=== PATIENT | female | born 1945 | race Caucasian/White ===

== ENCOUNTER 2018-11-26 20:45 | Inpatient (IN) | payer OTHER ==
[~2018-11-26] VITALS: Ht 182.9 cm; Wt 58.5 kg
--- NOTE | ~2018-11-26 | CON ---
[facility] [address] [place] [address] CONSULTATION Name: GRAZYNACIERRA Shalonda Room: [address] IN M.R.#: [id number] Admission: 11/26/18 Attend Phys: Lorenzo Yuan MD Discharge: Date of : 45 Report #: [id number] THIS REPORT FOR: //name// CC: Lorenzo Romero DATE OF SERVICE: 11/27/2018 HISTORY OF PRESENT ILLNESS: This is a 73-year-old female patient who was evaluated by me for memory disturbances. This patient is not able to provide any reliable history. There is only one number in the patient's chart for the patient's daughter. I tried that number and nobody answered that and I cannot leave a message there. We will continue to try to contact her. Clinically, this patient appeared to have pretty significant memory disturbances. I do not know how long it is going on because the patient does not even realize that she has memory problems. REVIEW OF SYSTEMS: Indicates she has some anxiety, history of fibromyalgia, arthritis, nephrectomy and that is from the records. I carried out 14-point review of system in this patient, but I am not sure whether the history provided by the patient is accurate or not. She complained of some chest pain, but she does not describe it further. This is all I can get as far as 14-point review of system is concerned. PAST MEDICAL HISTORY: Positive for memory problem, but I do not know how long it is going on and I need to contact the daughter and we will continue to make an effort to do that. Past medical history is unavailable from the patient. She denies any stroke, but the history is not reliable. FAMILY HISTORY: Negative for stroke according to him. SOCIAL HISTORY: She said she does not drink any alcohol. PHYSICAL EXAMINATION: The patient's examination indicate that the patient is alert. She could not tell me what date it is. She was able to tell me what month it is. She has 0 out of 3 memories at 2 minutes interval. Her speech looks intact. Cranial nerve examination 2-12 was carried out and it is difficult to tell especially about the visual field because she does not cooperate. Neuromuscular examination for strength, sensation, reflexes and tone was carried out again she is pretty not able to cooperate. She is very pleasant, but she does not understand the instructions. Similarly, I could not look at the fundus. Cardiac examinations appear unremarkable. No respiratory difficulty was noticed. She is moderately built individual. Her blood pressure is 98/52, respiration is 15, pulse is 78, and temperature is 98.1. LABORATORY DATA: Her WBC count is only 3. Her hemoglobin is only 8[place] [address] CONSULTATION Name: GRAZYNACIERRA SANTOS Shalonda Room: [address] IN ..#: [id number] Admission: 11/26/18 Attend Phys: Lorenzo Yuan MD Discharge: Date of : 45 Report #: [id number] scan of the head demonstrated no acute changes. IMPRESSION AND PLAN: This patient appeared to have significant dementia. I agree with your plan of doing a workup starting with a TSH, vitamin B12, and a sed rate. Further workup need to be coordinated with the patient's family. I will continue to make an effort to reach the family to see if we can get some more history in this patient and leave further recommendations later on. Thank you very much for this referral. By: 1846 0039Neal Newsome MD /nt
[~2018-11-26 20:45] MED LIST: FLEXERIL PO; HYDROCODON-ACE1 EAC5 PO; HYDROCODONE-AP1 EAC6 PO; KEFLEX500 MG PO; MIRALAX17 GM PO; OMEPRAZOLE 20 M20 M1 PO; PERCOCET 7.5-31 EACH PO; TRAZODONE HCL100 MG PO; XANAX2 MG PO
[2018-11-26 20:47] VITALS: BP 116/38
[2018-11-26 21:18] LABS: ABSOLUTE LYMPHOCYTES 0.6 thou/uL (0.8-5.3); ABSOLUTE MONOCYTES 0.4 thou/uL (0.0-1.2); ABSOLUTE NEUTROPHILS 1.9 thou/uL (1.6-8.1); EOSINOPHILS 0.2 %; HEMATOCRIT 23.6 % (37.0-47.0); LYMPHOCYTES 19.9 %; MCH 39.2 pg (26.0-34.0); MCHC 33.8 g/dL (28.0-37.0); MCV 115.8 fL (80.0-100.0); MONOCYTES 14.8 %; MPV 6.9 fl. (7.2-11.1); NUCLEATED RBCS 0 /100WBC; PLATELET COUNT* 184 thou/uL (150-400); POLYS 64.1 %; RBC 2.03 mil/uL (4.20-5.00); RDW-CV 15.1 % (10.5-14.5)
[2018-11-26 21:29] LABS: ANION GAP 6 mmol/L (7-16); BUN 17 mg/dL (7-18); CALCIUM 9.1 mg/dL (8.5-10.1); CHLORIDE 105 mmol/L (98-107); CO2 30 mmol/L (21-32); CREATININE 0.9 mg/dL (0.6-1.3); GLUCOSE 101 mg/dL (70-99); POTASSIUM 4.9 mmol/L (3.5-5.1); SODIUM 141 mmol/L (136-145)
[2018-11-26 21:31] LABS: APTT 27.5 Seconds (25.0-31.3); INR 1.1
[2018-11-26 21:43] LABS: ALBUMIN 3.5 g/dL (3.4-5.0); ALKALINE PHOSPHATASE 79 U/L (46-116); CK-MB MASS 6.6 ng/mL (<0.5-3.6); LIPASE 573 U/L (73-393); MAGNESIUM 2.1 mg/dL (1.8-2.4); NT-PRO BRAIN NAT PEPTIDE 1409 pg/mL (<300); SGOT 26 U/L (15-37); SGPT 33 U/L (30-65); TOTAL BILIRUBIN 0.7 mg/dL (<0.1-1.0); TOTAL PROTEIN 5.9 g/dL (6.4-8.2); TROPONIN-I LEVEL <0.06 ng/mL (<0.06)
[2018-11-26 22:17] LABS: PLATELET ESTIMATE ADEQUATE
[2018-11-26 22:18] LABS: ANISOCYTOSIS 1+; POLYCHROMASIA Occasional
[2018-11-26 22:19] LABS: MACROCYTES 2+
[2018-11-27] VITALS (8 sets, daily range): BP systolic 82–123; BP diastolic 36–60
--- NOTE | 2018-11-27 00:15 | NUR ---
RECEIVED REPORT FROM ER AND PT ADMITTED TO 229. AMBULATED FROM CART TO BED WITH ASSIST OF 1 AND STEADY. PT ORIENTED TO SELF ONLY. POOR HISTORIAN TO OBTAIN ADMISSION HX. NO SKIN BREAKDOWN NOTED. ALANA FEET WITH OVER GROWTH OF TOENAILS. TELEMETRY APPLIED SHOWING SA. BED ALARM ON. WILL CONT TO MONITOR AND ASSIST NEEDED.
--- NOTE | 2018-11-27 06:43 | NUR ---
SLEPT WELL TONIGHT. VERY DIAPHORETIC THIS AM. ASSISTED TO BR WITH STEADY GAIT. NO CHANGE IN ASSESSMENT. HS GOALS OF REST AND SAFETY ACHIEVED. HOURLY ROUNDING OBSERVED.
[2018-11-27 10:25] LABS: URINE BILIRUBIN NEGATIVE (Negative); URINE BLOOD 1+ (Negative); URINE CLARITY CLEAR; URINE COLOR YELLOW; URINE GLUCOSE-RANDOM NEGATIVE (Negative); URINE KETONES NEGATIVE (Negative); URINE PROTEIN TRACE (Negative)
[2018-11-27 10:28] LABS: URINE LEUKOCYTES-REFLEX 2+ (Negative); URINE NITRITE-REFLEX POSITIVE (Negative)
[2018-11-27 10:36] LABS: BACTERIA-REFLEX >30 Many /HPF (None Seen); CASTS None Seen /LPF (None Seen); CRYSTALS None Seen /LPF (None Seen); MUCUS None Seen strn/LPF (None Seen); SQUAMOUS 0-3 Few /LPF (0-3); URINE RBC 3-10 Few /HPF (0-2); URINE WBC-REFLEX >25 Many /HPF (0-5)
[2018-11-27 10:51] LABS: AMP/METHAMP Negative (Negative); BARBITURATES Negative (Negative); BENZODIAZEPINES Negative (Negative); COCAINE Negative (Negative); METHADONE Negative (Negative); OPIATES Negative (Negative); PCP Negative (Negative); THC Negative (Negative)
--- NOTE | 2018-11-27 10:59 | EKG ---
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
--- NOTE | 2018-11-27 12:20 | NUR ---
MET WITH PT TO DISCUSS HOME SITUATION/DC PLANNING. NO FAMILY PRESENT. ATTEMPTED TO CALL [facility] BUT NO ANSWER AND UNABLE TO LEAVE MESSAGE. PT STATES SHE LIVES WITH [place]. IS INDEPENENT AND USES NO EQUIPMENT. PT WITH SOME CONFUSION AND NOT ABLE TO ANSWER ALL QUESTIONS. WILL CONTINUE TO TRY TO REACH DT.
--- NOTE | 2018-11-27 14:23 | NUR ---
Nutrition: Pt admitted with humeral head FX. Hx, labs, RX noted. Seen for low BMI. Wt: 129#. Clear liquid diet ordered. During visit, pt stated she really needed a bathroom and requested her CHOCOLATIER. Pt did agree to [place] Ensure for added po intake. RD will order Ensure Clear Peña for now since pt is on CLD. Underweight R/T unknown etiology AEB BMI <18.5. Otherwise, no nutrition concerns at this time. Low risk. Will follow up per protocol.
[2018-11-27 20:13] LABS: ESR (SEDRATE) 10 mm/hr (0-30)
[2018-11-28] VITALS: BP 96/40
[2018-11-28 04:00] VITALS: BP 104/49
[2018-11-28 05:44] LABS: MCH 40.5 pg (26.0-34.0); MCHC 35.2 g/dL (28.0-37.0); MCV 115.1 fL (80.0-100.0); MPV 7.3 fl. (7.2-11.1); NUCLEATED RBCS 0 /100WBC; PLATELET COUNT* 149 thou/uL (150-400); RBC 1.65 mil/uL (4.20-5.00); RDW-CV 15.2 % (10.5-14.5)
[2018-11-28 05:50] LABS: CALCIUM 8.2 mg/dL (8.5-10.1); CREATININE 0.8 mg/dL (0.6-1.3)
[2018-11-28 05:59] LABS: HEMOGLOBIN 6.7 gm/dL (12.0-15.0); WBC 1.6 thou/uL (4.0-11.0)
[2018-11-28 06:53] LABS: ABSOLUTE LYMPHOCYTES 0.7 thou/uL (0.8-5.3); ABSOLUTE MONOCYTES 0.2 thou/uL (0.0-1.2); ABSOLUTE NEUTROPHILS 0.8 thou/uL (1.6-8.1); PLATELET ESTIMATE DECREASED
[2018-11-28 06:54] LABS: MACROCYTES 3+
--- NOTE | 2018-11-28 07:27 | NUR ---
PT CARE ASSUMED AT 1930. SAT MAINTAINED IN RA. PT IS IMPULSIVE, GETS OFF THE BED ALARM, EDUCATION GIVEN ON USING THE CALL LIGHT, NEEDS REINFORCEMENT. DENIES PAIN AND SOB. CALL LIGHT WITHIN REACH AND BED IN LOW POSITION. HOURLY ROUNDING DONE FOR PT SAFETY.
[2018-11-28 08:00] VITALS: BP 96/46
[2018-11-28 11:12] VITALS: BP 110/60; BP 115/80; BP 120/62; BP 124/80; BP 97/64
--- NOTE | 2018-11-28 18:01 | NUR ---
PT RESTING IN BED THROUGHOUT SHIFT. PT CALLS APPROPRIATELY FOR ASSIST TO BR. ORIENTED TO TIME AND PERSON. PT TOLERATING PO WELL. REPORTS OCASSIONAL NAUSEA. DTR AT BS AND UPDATED ON PLAN OF CARE
[2018-11-28 20:20] VITALS: BP 103/45
--- NOTE | 2018-11-28 22:17 | CON ---
[address] [address] CONSULTATION Name: GRAZYNACIERRA J Room: [address] IN .R.#: [id number] Admission: 11/26/18 Attend Phys: Lorenzo Yuan MD Discharge: Date of : 45 Report #: [id number] THIS REPORT FOR: //name// CC: Lorenzo Romero DATE OF SERVICE: 11/27/2018 INPATIENT CONSULTATION REQUESTING PHYSICIAN: Octavio Reece MD REASON FOR CONSULTATION: Unexplained anemia and leukopenia. SUBJECTIVE: The patient is a 73-year-old female who presented because of symptoms of nausea, vomiting, confusion and altered mental status. The patient was awake and alert upon encounter today. She has been treated with supportive care with IV fluids and antibiotics. She had a urinalysis, which showed UTI. Reviewing her labs showed that her WBC was decreased at 3.0. Previously back in 2014, it has been within that range. Also, she had a mild anemia back in 12/2014, which was 10.3; however, today, her hemoglobin is 8.0, MCV was elevated at 115 and platelet count is 184. However, her neutrophils has been within normal range and peripheral blood smear showed mild anisocytosis and macrocytosis. Further workup revealed that she has a normal kidney function with a normal elevation of her LFTs; however, she was noted to have a positive urinalysis. The patient denies any recent weight loss, nausea, vomiting or abdominal pain. REVIEW OF SYSTEMS: All systems were reviewed. It was negative except the above. PAST MEDICAL HISTORY: The patient had fibromyalgia and osteoarthritis. PRIOR SURGERIES: Nephrectomy and total knee replacement. MEDICATIONS: Per admission list. ALLERGIES: No known allergies. SOCIAL HISTORY: No smoking, no alcohol abuse, no drug abuse. FAMILY HISTORY: Noncontributory. PHYSICAL EXAMINATION: VITAL SIGNS: Today, temperature is 36.0, pulse is 58, respirations 16, blood pressure is 106/51 and SpO2 was 96% [place] [address] CONSULTATION Name: CIERRA GERONIMO Room: [address] IN [facility].#: [id number] Admission: 11/26/18 Attend Phys: Lorenzo Yuan MD Discharge: Date of : 45 Report #: [id number] GENERAL: The patient was lying in bed. She was not in acute distress. LUNGS: Clear to auscultations bilaterally. HEART: Regular rate and rhythm. S1, S2 within normal limits. ABDOMEN: The patient with no rebound or guarding. Bowel sounds were positive. EXTREMITIES: No edema, no cyanosis, no clubbing. SCANS: A CT of the head was negative. Chest x-ray also showed no acute cardiopulmonary process detected. LABORATORY DATA: Labs as mentioned above. WBC 3.0, hemoglobin 8.0, MCV is 115.8 and platelet count is 184. PT was 11.0 and PTT 27.5. Her creatinine is 0.7. Magnesium is 2.1, AST 26, ALT is 33 and alkaline phosphatase 79. ASSESSMENT AND PLAN: A 73-year-old female who has been evaluated because of unclear symptoms including nausea, vomiting, change in mental status. She was found to have a urinary tract infection. A CBC showed mild leukopenia, which has been chronic. However, she had a significant anemia, which was macrocytic. Agree with obtaining B12 and folate; however, at the same time, I would like to rule out any possibility of liver disease. We will obtain ultrasound of the abdomen to rule out any possibility of hepatosplenomegaly. Other workup including peripheral blood smear, serum electrophoresis and flow cytometry will be also indicated today. I will follow the patient during hospitalization. <ELECTRONICALLY SIGNED> By: Cathy Winters MD 11/28/18 2217 1625 0025Cathy Winters MD /nt
[2018-11-29 04:00] VITALS: BP 116/54
[2018-11-29 04:26] LABS: ABSOLUTE LYMPHOCYTES 1.1 thou/uL (0.8-5.3); ABSOLUTE MONOCYTES 0.3 thou/uL (0.0-1.2); ABSOLUTE NEUTROPHILS 1.1 thou/uL (1.6-8.1); BASOPHILS 0.9 %; EOSINOPHILS 0.7 %; HEMATOCRIT 24.3 % (37.0-47.0); HEMOGLOBIN 8.2 gm/dL (12.0-15.0); LYMPHOCYTES 43.6 %; MCH 37.1 pg (26.0-34.0); MCHC 33.9 g/dL (28.0-37.0); MPV 6.8 fl. (7.2-11.1); NUCLEATED RBCS 0 /100WBC; PLATELET COUNT* 160 thou/uL (150-400); POLYS 43.8 %; RBC 2.22 mil/uL (4.20-5.00); RDW-CV 20.9 % (10.5-14.5); WBC 2.6 thou/uL (4.0-11.0)
[2018-11-29 05:17] LABS: MCV 109.6 fL (80.0-100.0)
--- NOTE | 2018-11-29 05:56 | NUR ---
PT CARE ASSUMED AT 1930. SAT MAINTAINED IN RA. PT IS CONFUSED. CALL LIGHT WITHIN REACH AND BED IN LOW POSITION. DENEIS PAIN AND SOB. HOURLY ROUNDING DONE FOR PT SAFETY.
--- NOTE | 2018-11-29 07:05 | NUR ---
CHANGE OF SHIFT OF BEDSIDE REPORT GIVEN PATIENT SEEN AT BEDSIDE, IN BED ASLEEP ASSUMED PATIENT CARE
[2018-11-29 08:00] VITALS: BP 103/40
--- NOTE | 2018-11-29 08:55 | NUR ---
RECEIVED CONSULT FOR DR. KUHN TO DO BONE MARROW BIOPSY. ALL LABS AND MEDICATIONS CHECKED AND FROM IR STANDPOINT THE PROCEDURE CAN BE PERFORMED. WAITING FOR DR. PINA (PATHOLOGY) TO CALL BACK TO APPROVE PROCEDURE. LEFT VOICEMAIL DR. PINA IS NOT HERE TODAY, HE IS IN [place]. CALLED THE FLOOR AND SPOKE TO EUGENIO DEE TO UPDATE HER ON THE STATUS OF THE PROCEDURE. WILL CALL HER BACK WHEN DR. PINA GIVES THE APPROVAL.
--- NOTE | 2018-11-29 10:02 | NUR ---
SPOKE WITH DR. PINA FROM PATHOLOGY. EXPLAINED SITUATION AND REVIEWED PATIENT INFORMATION (LABS,ETC) AND HE HAS APPROVED FOR PATIENT BONE MARROW TO BE DONE AN INPATIENT. CALLED DR. KUHN AND DR. KUHN WILL DO TOMORROW AM. DR. KRISHNAN AND DR. RODRIGUES HAVE BOTH BEEN NOTIFIED AND ARE IN AGREEMENT THAT TOMORROW IS FINE FOR BIOPSY TO BE DONE. INFORMED THE NURSE ON THE FLOOR SO THAT SHE COULD ALLOW THE PATIENT TO EAT AND KEEP NPO PAST MIDNIGHT FOR PROCEDURE TOMORROW.
[2018-11-29 12:28] VITALS: BP 100/49
[2018-11-29 15:07] LABS: KAPPA FREE LIGHT CHAINS 17.9 mg/L (3.3-19.4); LAMBDA FREE LIGHT CHAINS 16.9 mg/L (5.7-26.3)
[2018-11-29 16:29] VITALS: BP 105/51
[2018-11-29 20:10] VITALS: BP 102/52
[2018-11-30] VITALS (10 sets, daily range): BP systolic 94–128; BP diastolic 43–65
[2018-11-30 04:32] LABS: ABSOLUTE LYMPHOCYTES 1.1 thou/uL (0.8-5.3); ABSOLUTE MONOCYTES 0.3 thou/uL (0.0-1.2); ABSOLUTE NEUTROPHILS 0.9 thou/uL (1.6-8.1); BASOPHILS 0.7 %; EOSINOPHILS 1.1 %; HEMATOCRIT 22.1 % (37.0-47.0); HEMOGLOBIN 7.5 gm/dL (12.0-15.0); LYMPHOCYTES 46.5 %; MCH 37.4 pg (26.0-34.0); MCV 110.1 fL (80.0-100.0); MONOCYTES 14.2 %; MPV 6.9 fl. (7.2-11.1); NUCLEATED RBCS 0 /100WBC; PLATELET COUNT* 153 thou/uL (150-400); POLYS 37.5 %; RBC 2.01 mil/uL (4.20-5.00); RDW-CV 20.1 % (10.5-14.5); WBC 2.3 thou/uL (4.0-11.0)
[2018-11-30 04:43] LABS: CALCIUM 8.2 mg/dL (8.5-10.1); CREATININE 0.9 mg/dL (0.6-1.3); POTASSIUM 4.1 mmol/L (3.5-5.1)
[2018-11-30 07:01] LABS: ANISOCYTOSIS 2+; MACROCYTES 2+
--- NOTE | 2018-11-30 10:51 | NUR ---
CONTINUE TO FOLLOW, PT'S SISTER, TEDDY RIVAS HERE [phone]. SHE WAS NOT ON PT'S SPOKESPERSON LIST BUT SHE DID GIVE INFO. SHE VOICED CONCERN ABOUT PT'S LIVING SITUATION AND WONDERED IF PT NEEDED [facility] CARE. WILL CONTINUE TO WORK ON [place] PLANNING [facility]. AT THIS TIME IS HOME WITH [facility] AT [place]
[2018-11-30 13:11] LABS: GLOBULIN TOTAL 1.6 g/dL (2.2-3.9); M-SPIKE Not Observed g/dL (Not Observed)
--- NOTE | 2018-11-30 17:06 | PATH ---
[address] [address] PATHOLOGY RPT PROCEDURE Name: GRAZYNACIERRA Shalonda Room: [address] IN M.R.#: [id number] Admission: 11/26/18 Date of : 45 Discharge: Report #: [id number] Path Case #: [id number] [facility] Accession Number: [id number] . 01 Material submitted: . body - PERIPHERAL BLOOD . 02 Diagnosis: Special studies report received from [facility], [address] [place] [address], [address], [place], [address], on case [id number], labeled with their number [id number], dated 11/29/2018. . Flow Cytometry: Hematologic Neoplasia Assessment . Clinical History Encephalopathy and UTI . Indication for Study Evaluation for hematolymphoid neoplasia . Specimen Peripheral Blood . Viability 85% (7AAD exclusion) . Interpretation Peripheral Blood: - Relatively increased T-cell large granular lymphocytes (T-LGLs) (9.3% of total cells). - No evidence for abnormal myeloid maturation or an increased blast population. - No evidence for a B-cell lymphoproliferative disorder. . Comments Proliferations of large granular lymphocytes are a relatively frequent finding. They can increase in viral infections, autoimmune disorders, and following bone marrow transplantation and chemotherapy. They can also increase in T-LGL lymphoproliferative disorders (T-cell large granular lymphocytic leukemia). If needed, molecular testing for clonal TCR gene rearrangement is available to further assess for a clonal T-LGL process. Correlation with results of morphologic studies, CBC data, and other clinical data is recommended. . Populations Analyzed Myeloid Blasts: 0.1% No significant blast population detected Lymphocytes: 40% B-cells: 0.8%, polytypic/polyclonal sIg light chain pattern T-cells: no [place] [address] PATHOLOGY RPT PROCEDURE Name: CIERRA GERONIMO Shalonda Room: [address] ADM IN .R.#: [id number] Admission: 11/26/18 Date of : 45 Discharge: Report #: [id number] Path Case #: [id number] markers tested CD4+ T-cells: 14.8% (including 0.2% CD57+ cells) CD8+ T-cells: 22.0% (including 8.5% CD57+ cells) CD4:CD8: The CD4:CD8 ratio is reduced at 0.7:1. NK cells: 0.4%, T-LGLs comprise 9.3% of total cells and express CD3, CD8, CD57 (heterogeneous), CD11c, CD16, and show upregulation of CD2, downregulation of CD5 and CD7. They are negative for CD4 and CD56. Neutrophils: 51% No significant abnormalities of the markers tested Monocytes: 5% No significant abnormalities of the markers tested Eosinophils: 2% No relative increase Basophils: 0.1% No relative increase CD45 Negative 1% No significant reactivity with the markers tested Events/Debris: (may represent unlysed red blood cells, erythroid precursors, platelets, debris, etc.) . Morphologic Evaluation A slide was reviewed for supplier quality manager purposes only. . Specimen Description Total Cell Yield: 1.10X10 and 6 . Reagent(s) Used CD2, CD3, CD4, CD5, CD7, CD8, CD10, CD11b, CD13, CD14, CD16, CD19, CD20, CD33, CD34, CD38, CD45, CD56, CD57, CD64, CD117, HLA-DR, kappa, lambda . at [facility] [employer] [facility]. Madi Mccartney MD Hematopathologist . . Intended Use Flow cytometry is optimally used to immunophenotypically characterize abnormal populations when they are detected. Negative flow cytometry results do not exclude lymphoma or neoplasia. Possible false negative flow cytometry results may occur in, but are not limited to, the following: neoplastic cells in Hodgkin lymphoma are not typically adequately represented by routine clinical flow cytometry; neoplastic cells may be lost or inadequately represented due to degeneration, sample processing, sampling artifact, or patchy involvement; plasma cells are typically underrepresented by flow cytometry; immature cells/blasts may be underrepresented due to hemodilution; myeloproliferative disorders and low grade myelodysplasia may not have immunophenotypic abnormalities or increased blasts. Correlation with all available clinical, laboratory, and morphologic data is always necessary to assess for the possibility of false negative flow cytometry results and to establish a diagnosis. Each marker in this analysis was used to assess [place] [address] PATHOLOGY RPT PROCEDURE Name: CIERRA GERONIMO Room: 229-P ADM IN M.R.#: [id number] Admission: 11/26/18 Date of : 45 Discharge: Report #: [id number] Path Case #: [id number] abnormalities or to evaluate detected abnormalities. . Disclaimer(s) This test was performed at [facility]. at [address], [address] - Project Officer: Jassi Copeland MD. [employer] is a business unit of [employer]., a wholly-owned subsidiary of [employer] . Any image or images that accompany this report are player services representative images only and should not be used to render a diagnosis. . This test was developed and its performance characteristics determined by [employer]. It has not been cleared or approved by the Food and Drug Administration (FDA). The FDA has determined that such clearance or approval is not necessary. . For inquiries, the physician may contact Lab: [phone] . A complete copy of the report is on file. . Professional services performed by [employer]. at [address] [facility] [address], [place] [address]. Technical services performed by [employer]. at [address], [place] [address]. . (AMJ 11/30/2018) . AZJ/11/30/2018 . 02 Electronically signed: . Pricila Manuel MD, Pathologist NPI- [id number] . 02 Pathologist provided ICD-10: G93.40 . 02 CPT . 150932 Specimen Comment: A courtesy copy of this report has been sent to Specimen Comment: [phone], , . Specimen Comment: Report sent to ,DR HARRISON / DR TORRES Performed at: 01 [facility] [address] [place] [address] [id number] MD Saran Renee MD Phone: [phone] Performed at: [address] [place] [address] PATHOLOGY RPT PROCEDURE Name: CIERRA GERONIMO Room: [address] IN ..#: [id number] Admission: 11/26/18 Date of : 45 Discharge: Report #: [id number] Path Case #: [id number] [facility] [address] [place] [address] [id number] MD Ian Danielle MD Phone: [phone]
--- NOTE | 2018-11-30 17:40 | NUR ---
ASSUMED PT CARE AT 0800, AOX2, UP WITH ASSIST, O2 SAT 90'S RA, TRACING SR ON TELE. PT COMPLAINS OF NAUSEA & VOMITING, HEADACHE. RELIEVED BY MEDS. PT HAD BONE MARROW BIOPSY. PT LUNG SOUND CLEAR. IV ACCESS INTACT. VSS, AM ASSESSMENT CHARTED, HOURLY ROUNDING, CALL LIGHT WITHIN REACH. WILL CONTINUE TO MONITOR.
[2018-12-01] VITALS: BP 104/37
[2018-12-01 04:00] VITALS: BP 92/47
[2018-12-01 04:48] LABS: ABSOLUTE LYMPHOCYTES 0.8 thou/uL (0.8-5.3); ABSOLUTE MONOCYTES 0.3 thou/uL (0.0-1.2); ABSOLUTE NEUTROPHILS 0.7 thou/uL (1.6-8.1); BASOPHILS 0.8 %; EOSINOPHILS 2.5 %; HEMATOCRIT 21.6 % (37.0-47.0); HEMOGLOBIN 7.3 gm/dL (12.0-15.0); LYMPHOCYTES 44.2 %; MCH 37.5 pg (26.0-34.0); MCV 110.4 fL (80.0-100.0); MONOCYTES 14.9 %; MPV 7.2 fl. (7.2-11.1); NUCLEATED RBCS 0 /100WBC; PLATELET COUNT* 141 thou/uL (150-400); POLYS 37.6 %; RBC 1.96 mil/uL (4.20-5.00); RDW-CV 19.1 % (10.5-14.5)
[2018-12-01 05:01] LABS: CALCIUM 8.3 mg/dL (8.5-10.1); CREATININE 0.9 mg/dL (0.6-1.3); POTASSIUM 3.9 mmol/L (3.5-5.1)
[2018-12-01 05:07] LABS: WBC 1.9 thou/uL (4.0-11.0)
--- NOTE | 2018-12-01 06:56 | NUR ---
Pt sets off bed alarm when she needs to void, attempts to get up by self. Ambulates well with walker and standby assist. Remains confused, though pleasant and cooperative; also impulsive as demonstrated above. VSS though BP soft at times. SB-SR per monitor. WBC 1.9 this am, informed Dr. Bassett; no new orders received. No nausea reported overnight. Will continue to monitor.
[2018-12-01 07:30] VITALS: BP 108/45
--- NOTE | 2018-12-01 09:53 | NUR ---
ASSUMED PT CARE AT 0730. AOX2, UP WITH ASSIST. O2 SAT 90'S RA. TRACING SR ON MONITOR. PT COMPLAIN OF HEADACHE. PT WBC IS LOW, DR NOTIFIED. PT FOR DISCHARGE PER , IF HEMATOLOGY IS OK. VSS, AM ASSESSMENT CHARTED. MEDS GIVEN PER MAR, BED ALARM, CALL LIGHT WITHIN REACH. WILL CONTINUE TO MONITOR.
[2018-12-01] MEDS ORDERED: FOLIC ACID1 MG PO (10:25)
[2018-12-01] MEDS ORDERED: CEFUROXIME500 MG PO (10:26)
[2018-12-01 10:38] VITALS: BP 106/51
[2018-12-01 12:18] VITALS: BP 98/61
--- NOTE | 2018-12-01 16:00 | NUR ---
Following for d/c planning needs. Received order for home health from physician. Per previous CM note, pt chose [facility]. Called [facility] and faxed orders. No other needs identified.
--- NOTE | 2018-12-01 17:05 | NUR ---
DISCHARGED PLAN DISCUSSED WITH PT AND DAUGHTER. MEDICATION PACKET SCRIPT/PACKET GIVEN. IV, TELE REMOVED. REMINDED TO FOLLOW UP WITH PCP, HEMO/ONCO. ALL BELONGIONGS PACKED AND CHECKED. LEFT THE UNIT AT 1700 VIA WHEELCHAIR
== END 2018-12-01 18:30 | disposition home health service (06) | DRG 871 ==
LOC: M.ERS 20:45 → M.TBA-ER 23:06 → M.2W 23:06
PROVIDERS: Family Medicine; Internal Medicine; ADMIT Internal Medicine
PROC: 30233N1 Transfusion of Nonautologous Red Blood Cells into Peripheral Vein, Percutaneous Approach (ICD-10-PCS; principal; 2018-11-28)
PROC: 07DR3ZX Extraction of Iliac Bone Marrow, Percutaneous Approach, Diagnostic (ICD-10-PCS; 2018-11-30)
DX: A41.9 Sepsis, unspecified organism (principal); G93.41 Metabolic encephalopathy; N39.0 Urinary tract infection, site not specified; M19.90 Unspecified osteoarthritis, unspecified site; Z96.651 Presence of right artificial knee joint; D64.9 Anemia, unspecified; D72.819 Decreased white blood cell count, unspecified; G30.9 Alzheimer's disease, unspecified; F02.80 Dementia in other diseases classified elsewhere, unspecified severity, without behavioral disturbance, psychotic disturbance, mood disturbance, and anxiety; B96.20 Unspecified Escherichia coli [E. coli] as the cause of diseases classified elsewhere; D75.9 Disease of blood and blood-forming organs, unspecified; E53.8 Deficiency of other specified B group vitamins; Z90.5 Acquired absence of kidney; Z79.899 Other long term (current) drug therapy

== ENCOUNTER 2019-02-11 21:15 | Emergency (ER) | payer OTHER ==
[~2019-02-11] VITALS: Ht 182.9 cm; Wt 55.3 kg
[~2019-02-11 21:15] MED LIST changes: +CEFUROXIME500 MG PO; +FOLIC ACID1 MG PO
[2019-02-11] MEDS ORDERED: B12INJ IM (22:00)
[2019-02-11 22:16] LABS: ABSOLUTE LYMPHOCYTES 0.7 thou/uL (0.8-5.3); ABSOLUTE MONOCYTES 0.3 thou/uL (0.0-1.2); ABSOLUTE NEUTROPHILS 1.6 thou/uL (1.6-8.1); BASOPHILS 1.1 %; EOSINOPHILS 0.4 %; HEMATOCRIT 20.5 % (37.0-47.0); HEMOGLOBIN 7.2 gm/dL (12.0-15.0); LYMPHOCYTES 27.4 %; MCH 41.8 pg (26.0-34.0); MCHC 35.1 g/dL (28.0-37.0); MCV 119.2 fL (80.0-100.0); MONOCYTES 11.8 %; MPV 7.4 fl. (7.2-11.1); NUCLEATED RBCS 0 /100WBC; PLATELET COUNT* 163 thou/uL (150-400); POLYS 59.3 %; RBC 1.72 mil/uL (4.20-5.00); RDW-CV 16.4 % (10.5-14.5); WBC 2.7 thou/uL (4.0-11.0)
[2019-02-11 22:27] LABS: ANION GAP 9 mmol/L (7-16); BUN 20 mg/dL (7-18); CALCIUM 8.7 mg/dL (8.5-10.1); CHLORIDE 104 mmol/L (98-107); CO2 25 mmol/L (21-32); GLUCOSE 114 mg/dL (70-99); POTASSIUM 3.7 mmol/L (3.5-5.1); SODIUM 138 mmol/L (136-145)
[2019-02-11 22:29] LABS: APTT 25.9 Seconds (25.0-31.3); INR 1.1; PROTIME 10.8 Seconds (9.20-11.50)
[2019-02-11 22:36] LABS: ALBUMIN 3.4 g/dL (3.4-5.0); ALKALINE PHOSPHATASE 83 U/L (46-116); SGOT 52 U/L (15-37); SGPT 38 U/L (30-65); TOTAL BILIRUBIN 0.9 mg/dL (<0.1-1.0); TOTAL PROTEIN 5.9 g/dL (6.4-8.2); TROPONIN-I LEVEL <0.06 ng/mL (<0.06)
[2019-02-11 22:38] LABS: ANISOCYTOSIS 1+; MACROCYTES 3+
[2019-02-11 22:39] LABS: PLATELET ESTIMATE ADEQUATE
[2019-02-11 23:57] VITALS: BP 102/54
--- NOTE | 2019-02-12 16:52 | EKG ---
[place] [address] ELECTROCARDIOGRAM REPORT Name: CIERRA GERONIMO Room: [facility]#: [id number] Admission: 02/11/19 Attend Phys: Discharge: 02/12/19 Date of : 45 Report #: [id number] THIS REPORT FOR: //name// 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1945 Requested By: Matthias Mayberry Order Number: [id number] MD: Allan Moeller Measurements Intervals [place] Rate: 69 P: 10 UT: 191 QRS: -7 QRSD: 95 T: 74 QT: 420 QTc: 450 Interpretive Statements Sinus rhythm Abnormal R-wave progression, early transition Compared to ECG 11/26/2018 20:53:00 No significant changes Electronically Signed On 02-12-2019 16:52:40 CDT by Allan Moeller [email or web address] <ELECTRONICALLY SIGNED> By: Allan Moeller MD, [facility] 02/12/19 1652 12 12 Allan Moeller MD, FAC /EPI
== END 2019-02-12 00:08 | disposition home or self-care (01) ==
LOC: M.ERS 21:15
PROVIDERS: Family Medicine
DX: S41.112A Laceration without foreign body of left upper arm, initial encounter (principal); M19.90 Unspecified osteoarthritis, unspecified site; M79.7 Fibromyalgia; F03.90 Unspecified dementia, unspecified severity, without behavioral disturbance, psychotic disturbance, mood disturbance, and anxiety; Z90.5 Acquired absence of kidney; Z96.651 Presence of right artificial knee joint; W18.39XA Other fall on same level, initial encounter; Y92.89 Other specified places as the place of occurrence of the external cause; Y93.89 Activity, other specified; Y99.8 Other external cause status

== ENCOUNTER 2019-02-17 21:26 | Inpatient (IN) | payer OTHER ==
[~2019-02-17] VITALS: Ht 170.2 cm; Wt 61.5 kg
--- NOTE | ~2019-02-17 | PROC ---
[address] [address] PROCEDURE REPORT Name: CIERRA GERONIMO Room: [address] IN M.R.#: [id number] Admission: 02/18/19 Attend Phys: Linda Fair MD Discharge: Date of : 45 Report #: [id number] THIS REPORT FOR: //name// For GI report, please see the Provation report in Perceptive 7 content. By: [facility] Records Staff JUAN F /SHAYY
[~2019-02-17 21:26] MED LIST changes: +B12INJ IM
[2019-02-17 21:48] LABS: ABSOLUTE LYMPHOCYTES 0.8 thou/uL (0.8-5.3); ABSOLUTE MONOCYTES 0.5 thou/uL (0.0-1.2); ABSOLUTE NEUTROPHILS 1.7 thou/uL (1.6-8.1); BASOPHILS 0.8 %; HEMATOCRIT 20.1 % (37.0-47.0); HEMOGLOBIN 7.2 gm/dL (12.0-15.0); LYMPHOCYTES 24.7 %; MCH 41.8 pg (26.0-34.0); MCHC 35.8 g/dL (28.0-37.0); MCV 116.8 fL (80.0-100.0); MONOCYTES 17.8 %; MPV 7.3 fl. (7.2-11.1); NUCLEATED RBCS 0 /100WBC; PLATELET COUNT* 202 thou/uL (150-400); POLYS 56.7 %; RBC 1.72 mil/uL (4.20-5.00); RDW-CV 16.1 % (10.5-14.5)
[2019-02-17 21:57] LABS: CALCIUM 9.3 mg/dL (8.5-10.1); CREATININE 1.4 mg/dL (0.6-1.3); POTASSIUM 3.9 mmol/L (3.5-5.1)
[2019-02-17 21:58] LABS: INR 1.1; PROTIME 11.1 Seconds (9.20-11.50)
--- NOTE | 2019-02-17 22:01 | NUR ---
PATIENT UNABLE TO STAND OR WALK WHEN REQUESTED TO AMBULATE TO BATHROOM TO PROVIDE A URINE SPECIMAN FOR LABORATORY. NOTED PATIENT INCONTINTENT OF STOOL PATIENT CLENSED AND CLEAN GOWN AND DIAPER PROVIDED TO PATIENT.
[2019-02-17 22:08] LABS: ALBUMIN 3.3 g/dL (3.4-5.0); TOTAL BILIRUBIN 1.6 mg/dL (<0.1-1.0); TROPONIN-I LEVEL 0.06 ng/mL (<0.06)
[2019-02-17 22:51] LABS: URINE BLOOD NEGATIVE (Negative); URINE CLARITY CLEAR; URINE COLOR YELLOW; URINE GLUCOSE-RANDOM NEGATIVE (Negative); URINE KETONES TRACE (Negative); URINE LEUKOCYTES-REFLEX NEGATIVE (Negative); URINE NITRITE-REFLEX NEGATIVE (Negative); URINE PROTEIN 1+ (Negative); URINE SPECIFIC GRAVITY 1.025 (1.005-1.030)
[2019-02-17 22:58] LABS: ICTOTEST (BILI CONFIRMATORY) Negative (Negative); URINE BILIRUBIN 2+ (Negative)
[2019-02-18] VITALS (7 sets, daily range): BP systolic 76–120; BP diastolic 38–87
--- NOTE | 2019-02-18 05:09 | NUR ---
[facility]ON ROOM AIR AND TOLERATED.PT KEPT ON TELLING THAT SHE HAD AN ARGUEMENT WITH HER DAUGHTER ABOUT HER CAR AND DENTURES.SHE SEEMS ORIENTED.HAD HER SNACKS BOX AND ATE WELL.CONTINUE MONITORING AND TOWARDS GOAL.REINFORCE TO CALL IF SHE WANTS TO GET UP.CALL PINA WITH REACH.
--- NOTE | 2019-02-18 11:23 | EKG ---
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1945 Requested By: Keyona Escudero Order Number: [id number] MD: Sameer Yadav Measurements Intervals [place] Rate: 79 P: 30 SC: 173 QRS: -16 QRSD: 95 T: -3 QT: 403 QTc: 463 Interpretive Statements Sinus rhythm artifact noted Borderline left axis deviation Probable anteroseptal infarct, old Abnormal T, consider ischemia, lateral leads Baseline wander in lead(s) I,III,aVR,aVL Compared to ECG 02/11/2019 22:13:59 Myocardial infarct finding now present T-wave abnormality now present Possible ischemia now present Electronically Signed On 02-18-2019 11:22:54 CDT by Sameer Yadav [email or web address] <ELECTRONICALLY SIGNED> By: Sameer Yadav MD, [facility] 02/18/19 1122 38 38 Sameer Yadav MD, [facility] /EPI
--- NOTE | 2019-02-18 11:46 | NUR ---
MET WITH PT, SHE HAS SOME CONFUSION AND NOT ABLE TO GIVE A RELIABLE HX. ATTEMPTED TO CALL [facility]. NO ANSWER AND UNABLE TO LEAVE MESSAGE. WILL TRY LATER PT WAS HOSPITALIZED IN NOVEMBER AND SET UP WITH [facility]. SHE USES WALKER. WILL FOLLOW
[2019-02-18 12:01] LABS: MCH 42.3 pg (26.0-34.0); MCHC 35.9 g/dL (28.0-37.0); MPV 7.1 fl. (7.2-11.1); RBC 1.45 mil/uL (4.20-5.00); RDW-CV 15.9 % (10.5-14.5); WBC 2.5 thou/uL (4.0-11.0)
[2019-02-18 12:14] LABS: HEMOGLOBIN 6.1 gm/dL (12.0-15.0)
[2019-02-18 12:15] LABS: HEMATOCRIT 17.1 % (37.0-47.0)
[2019-02-18 12:20] LABS: ALBUMIN 2.8 g/dL (3.4-5.0); CALCIUM 8.3 mg/dL (8.5-10.1); CREATININE 1.3 mg/dL (0.6-1.3); POTASSIUM 3.5 mmol/L (3.5-5.1); TOTAL BILIRUBIN 0.8 mg/dL (<0.1-1.0); TOTAL PROTEIN 5.2 g/dL (6.4-8.2)
--- NOTE | 2019-02-18 15:16 | NUR ---
ASSESSMENT COMPLETE. PT ALERT AND ORIENTED TO SELF. PT HAS DEMENTIA AND IS CONFUSED AND FORGETFUL. PT DENIES PAIN. PT UP TO BSC, NO BOWEL MOVEMENT NEED STOOL FOR OCCULT. PT IS UP MAX ASSIST. IV FLUIDS INFUSING. PT HAD CRITICAL HGB, 1 TRANSFUSION ORDERED AND CURRENTLY INFUSING. GI CONSULT FOR ANEMIA. PT IS NSR ON TELE MONITOR. SEE ASSESSMENT AND VITALS FOR OTHER DETAILS. PT IS FALL RISK, BED ALARM ON. CALL LIGHT WITHIN REACH, WILL CONTINUE PLAN OF CARE
--- NOTE | 2019-02-18 17:56 | NUR ---
BLOOD COMPLETED AND PT REPORTED NAUSEA AND CHEST PAIN. VSS, NSR ON TELE MONITOR. EKG COMPLETED, COMPARED TO PREVIOUS WITH NO CHANGES. PT HAS IV FLUIDS INFUSING. PT HAS EGD TOMORROW WITH GI. SEE ASSESSMENT AND VITALS FOR OTHER DETAILS. CALL LIGHT WITHIN REACH, BED ALARM ON. WILL CONTINUE PLAN OF CARE
[2019-02-18 19:45] LABS: HEMATOCRIT 20.2 % (37.0-47.0); HEMOGLOBIN 7.1 gm/dL (12.0-15.0)
[2019-02-19] VITALS: BP 107/54; BP 119/55
[2019-02-19 04:00] VITALS: BP 92/47
[2019-02-19 08:00] VITALS: BP 109/44
--- NOTE | 2019-02-19 09:32 | EKG ---
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 : 1945 Requested By: Wing Bassett Order Number: [id number] MD: Allan Moeller Measurements Intervals Hillman Rate: 81 P: -13 WI: 194 QRS: -8 QRSD: 92 T: 131 QT: 396 QTc: 460 Interpretive Statements Sinus rhythm Abnormal R-wave progression, early transition Nonspecific T abnormalities, lateral leads Compared to ECG 02/17/2019 21:39:12 Myocardial infarct finding no longer present Possible ischemia no longer present T-wave abnormality still present Electronically Signed On 02-19-2019 9:32:06 CDT by Allan Moeller [email or web address] <ELECTRONICALLY SIGNED> By: Allan Moeller MD, FACC 02/19/19 0932 1749 1749 Allan Moeller MD, FAC /EPI
[2019-02-19 11:15] VITALS: BP 109/44
--- NOTE | 2019-02-19 12:09 | NUR ---
WOUND CARE NOTE: CONSULT RECEIVED FOR WOUND LEFT ARM/BLISTERS RIGHT LEG. PATIENT IS UNSURE OF ETIOLOGY OF EITHER WOUND. WOUND TO LEFT UPPER ARM MEASURES 4.5X6X0.1. PARTIAL THICKNESS. SLIGHT INFLAMMATION TO PARVEZ-WOUND, OTHERWISE INTACT. WOUND BED IS MOIST, PINK, NON-GRANULAR. DRAINING SMALL AMOUNTS OF SEROSANGUINEOUS DRAINAGE. WOUND WAS CLEANSED WITH WOUND CLEANSER, HAIR IN WOUND. APPLIED OPTIFOAM AG AND SECURED WITH ROLL GAUZE. RIGHT LEG: SKIN ALTERATION MEASURING 17.5X5.5X0.1. BLANCHABLE REDNESS, RAISED AREA. INDURATED. SCATTERED SEROUS FILLED BLISTERES OVER SKIN ALTERATION, MOST DISTAL ONE RUPTURED WITH A RED, MOIST WOUND BED. APPLIED VASELINE GAUZE OVER AREA AND SECURED WITH A PADDED SURESITE. PATIENT TOLERATED DRESSING CHANGE WELL. RECOMMEND DAILY DRESSING CHANGES ENCOURAGE GOOD NUTRTION/HYDRATION
[2019-02-19 13:26] LABS: MCH 38.5 pg (26.0-34.0); MPV 7.5 fl. (7.2-11.1); RBC 1.74 mil/uL (4.20-5.00); WBC 2.6 thou/uL (4.0-11.0)
[2019-02-19 13:27] LABS: MCV 110.1 fL (80.0-100.0)
[2019-02-19 13:28] LABS: HEMOGLOBIN 6.7 gm/dL (12.0-15.0)
[2019-02-19 13:29] LABS: HEMATOCRIT 19.1 % (37.0-47.0)
[2019-02-19 13:35] LABS: ALBUMIN 2.6 g/dL (3.4-5.0); CALCIUM 7.7 mg/dL (8.5-10.1); CREATININE 0.9 mg/dL (0.6-1.3); POTASSIUM 3.8 mmol/L (3.5-5.1); TOTAL BILIRUBIN 0.6 mg/dL (<0.1-1.0); TOTAL PROTEIN 4.5 g/dL (6.4-8.2)
--- NOTE | 2019-02-19 15:52 | NUR ---
CONTINUE TO FOLLOW, SPOKE WITH DTR/BERLIN OVER THE PHONE. SHE STATED PT DOES LIVE WITH HER. BERLIN TRIES TO LET PT DO MUCH SHE CAN AND PT DOES DO HER OWN ADLS. MADE BERLIN AWARE THAT PT HAS 2 WOUNDS AND SHE WAS ONLY AWARE OF ONE. ALSO THAT NURSE VOICED TODAY THAT PT'S FEET WERE SOILED AND THAT THERE WAS 'HAIR' IN HER WOUND. DTR DID STATE THEY HAVE DOGS. DTR STATED PT HAS DETERIORATED OVER THE LAST FEW MONTHS. PT HAD BEEN ON HOSPICE UNTIL A WEEK AGO. DTR CONCERNED ABOUT PT'S WEAKNESS AND STATED IF SHE'S NOT ABLE TO AMBULATE AND DO MOST OF HER OWN CARES, THEN SHE DOESN'T THINK SHE CAN CARE FOR HER. WOULD CONSIDER PLACEMENT. DISCUSSED POSSIBLE SNF D/T WEAKNESS AND WOUNDS AND SHE IS OPEN TO ONE [facility] THAT TAKES PT'S INSURANCE. PT DOESN'T NOT HAVE DPOA, WILL DISCUSS WITH HER WHEN ABLE. CALLED AND FAXED REFERRAL TO [facility] FOR SNF, STILL NEED THERAPY NOTES WILL NEED INSURANCE AUTH FOR SNF. WILL FOLLOW BERLIN HERNANDEZ DTR [phone] QUINN SAUCEDA [phone]
[2019-02-19 16:35] VITALS: BP 103/52; BP 108/62; BP 122/60
--- NOTE | 2019-02-19 18:27 | NUR ---
ASSUMED PT CARE AT 0700, PT A&O TO SELF AND SITUATION ONLY, CONFUSED AND FORGETFUL, BITE BLOCK MAKER TRACING SINUS RHYTHM, FULL ASSESSMENT CHARTED. WOUND TREATED DIRECTED, PICTURES TAKEN. PTS HGB AND HCT LEVELS DROPPED REQUIRING BLOOD TRANSFUSION, PT TOLERATED WELL. INCONT CARE, Q 2 HOUR TURNS, AND HOURLY ROUNDING COMPLETED.
[2019-02-19 19:30] VITALS: BP 115/57
[2019-02-19 20:42] LABS: HEMOGLOBIN 8.1 gm/dL (12.0-15.0)
[2019-02-20 00:05] VITALS: BP 104/57
[2019-02-20 04:26] VITALS: BP 114/55
--- NOTE | 2019-02-20 05:13 | NUR ---
APPROX 0400 PT HAD TEMP GIVEN MEDICATION WITH IMPROVEMENT NOTED. VSS. PT PROGRESSING TOWARDS GOALS. SEE MAR. SEE CHARTING. FALL PRECAUTIONS IN PLACE. HOURLY ROUNDING FOR SAFETY.
[2019-02-20 08:03] VITALS: BP 112/51
--- NOTE | 2019-02-20 09:49 | NUR ---
Faxed therapy evals to [facility], asked them to initiate insurance auth. Following
[2019-02-20 11:55] VITALS: BP 102/58
--- NOTE | 2019-02-20 11:59 | NUR ---
PER [facility], PT HAS OPEN EPISODES WITH HER MEDICARE FOR HOSPICE AND [facility]. CALL TO HOSPICE TO GET PROOF OF DC. ALSO CALLED AND FAXED REFERRAL TO [facility] PT MAY NEED LTC. THEY HAVE OPEN OF THAT AND TAKE PT'S INSURANCE
--- NOTE | 2019-02-20 14:02 | NUR ---
VSS, ASSUMED CARE IN THE AM, ASSESSMENT PERFORMED AND CHARTED, FALL PRECAUTIONS IN PLACE AND CALL LIGHT IN REACH, PT IS CONFUSED AND ALERT TO SELF, SHE IS UP WITH ONE AND WALKER, SHE STATES SHE HAS A HEADACH, PT GOAL IS TO IMPROVE ACTIVITY AND SAFETY, PT IS TRACING SR ON THE MONITOR, PT IS WAITING D/C DEPENDING ON INSURANCE AUTH,
[2019-02-20 16:00] VITALS: BP 98/49
--- NOTE | 2019-02-20 16:27 | NUR ---
CONTINUE TO AWAIT INS. AUTH FOR SNF. WILL F/U WITH [facility] IN AM
[2019-02-20 20:00] VITALS: BP 119/65
--- NOTE | 2019-02-20 23:29 | NUR ---
PT ALERT ORIENTED. UP WITH WALKER AND STD BY ASSIST OF ONE. TELEMETRY SHOWS SR. DRSG ON R HIP AND JESSE. NS AT 130ML/HR. INCONTINENT OF URINE.
[2019-02-21] VITALS: BP 115/50
[2019-02-21 04:00] VITALS: BP 99/51
[2019-02-21 08:00] VITALS: BP 108/59
--- NOTE | 2019-02-21 08:30 | NUR ---
ASSUMED PT CARE AROUND 0700. PT NOTED TO BE RESTING IN BED A/OX4. PT VSS, SR ON CARD MONITOR. ACCESSMENT COMPLETE ET DOCUMENTED IN PT CHART. THIS NURSE WILL CONT HOURLY ROUNDS. MEDS GIVEN WITH NO A/R.
[2019-02-21 11:40] VITALS: BP 96/51
[2019-02-21 12:10] LABS: ABSOLUTE LYMPHOCYTES 0.6 thou/uL (0.8-5.3); ABSOLUTE MONOCYTES 0.2 thou/uL (0.0-1.2); ABSOLUTE NEUTROPHILS 1.1 thou/uL (1.6-8.1); EOSINOPHILS 0.8 %; HEMATOCRIT 21.4 % (37.0-47.0); HEMOGLOBIN 7.7 gm/dL (12.0-15.0); LYMPHOCYTES 29.1 %; MCH 37.5 pg (26.0-34.0); MCHC 35.9 g/dL (28.0-37.0); MONOCYTES 11.1 %; NUCLEATED RBCS 0 /100WBC; PLATELET COUNT* 152 thou/uL (150-400); RBC 2.05 mil/uL (4.20-5.00); RDW-CV 27.2 % (10.5-14.5)
[2019-02-21 12:14] LABS: MCV 104.5 fL (80.0-100.0)
[2019-02-21 12:20] LABS: CALCIUM 7.7 mg/dL (8.5-10.1); CREATININE 0.8 mg/dL (0.6-1.3); MAGNESIUM 1.5 mg/dL (1.8-2.4); POTASSIUM 3.3 mmol/L (3.5-5.1)
[2019-02-21 12:38] LABS: ANISOCYTOSIS 2+; PLATELET ESTIMATE ADEQUATE
[2019-02-21 12:39] VITALS: BP 96/51
--- NOTE | 2019-02-21 13:00 | NUR ---
Insurance auth received. Pt discharging to [facility] today, facility to pickling grader at 4pm. Faxed dc orders. Chart copied. [id number] completed, sent with Pt, copy on chart. Updated Pt's dtr. Nurse report number is [id number]
[2019-02-21 13:28] LABS: ESR (SEDRATE) 5 mm/hr (0-30)
--- NOTE | 2019-02-21 14:07 | PATH ---
[facility] [address] [place] [address] PATHOLOGY RPT PROCEDURE Name: GRAZYNACIERRA Shalonda Room: [address] IN M.R.#: [id number] Admission: 02/18/19 Date of : 45 Discharge: Report #: [id number] Path Case #: [id number] [facility] Accession Number: [id number] . 01 Material submitted: . esophagus - DISTAL ESOPHAGUS. Modifiers: distal . 01 Clinical history: . None provided . 02 Diagnosis: Distal esophagus biopsy: - Benign gastric/columnar mucosa with moderate nonspecific chronic and active inflammation, negative for goblet cells, Helicobacter pylori organisms, granulomas and dysplasia. (SUSIE:everette; 02/20/2019) . Special stain: H. pylori immuno MBR 02/20/2019 1117 Local . 02 Electronically signed: . Chandler Walters MD, Pathologist NPI- [id number] . 01 Gross description: . Received in formalin labeled "[place], distal esophagus biopsy," are 2 segments of martell soft tissue measuring 0.7 x 0.2 x 0.2 cm in aggregate dimensions and ranging from 0.3 to 0.4 cm in maximum dimension. The specimen is submitted entirely in cassette A1. (TSD; 02/19/2019) TOB/TOB 02/19/2019 2136 Local . 02 Pathologist provided ICD-10: K20.9 . 02 CPT . 097805, [id number] Specimen Comment: A courtesy copy of this report has been sent to Specimen Comment: [phone], , . Specimen Comment: Report sent to ,DR GOETZ / DR HARRISON Performed at: [address] [facility] [id number], [place], [place] [id number] MD Saran Renee MD Phone: [phone] Performed at: 02 [facility] [address], [place], [place] [id number] MD Chandler Walters MD Phone: [phone]
[2019-02-21 15:28] LABS: URINE BILIRUBIN NEGATIVE (Negative); URINE BLOOD NEGATIVE (Negative); URINE CLARITY CLEAR; URINE COLOR YELLOW; URINE GLUCOSE-RANDOM NEGATIVE (Negative); URINE KETONES NEGATIVE (Negative); URINE LEUKOCYTES NEGATIVE (Negative); URINE NITRITE POSITIVE (Negative); URINE PROTEIN NEGATIVE (Negative); URINE SPECIFIC GRAVITY >= 1.030 (1.005-1.030); URINE UROBILINOGEN 0.2 E.U./dl (0.2-1.0)
[2019-02-21 15:39] LABS: BACTERIA 1-9 Few /HPF (None Seen); CASTS None Seen /LPF (None Seen); CRYSTALS None Seen /LPF (None Seen); SQUAMOUS 0-3 Few /LPF (0-3); URINE RBC 0-2 Rare /HPF (0-2); URINE WBC 0-5 Rare /HPF (0-5)
[2019-02-21] MEDS ORDERED: CARAFATE 1 GM TA1 G1 PO (15:54)
[2019-02-21] MEDS ORDERED: MAGOX 400400 MG PO (15:56)
[2019-02-21] MEDS ORDERED: ONDANSETRON HCL4 M1 IV PUSH (16:01)
[2019-02-21] MEDS ORDERED: PROTONIX40 M1 PO (16:08)
[2019-02-21] MEDS ORDERED: POTASSIUM20 PO (16:09)
[2019-02-21] MEDS ORDERED: PROMETHAZI IVPB (16:13)
[2019-02-21] MEDS ORDERED: TYLENOL325 MG PO (16:21)
[2019-02-21 16:23] VITALS: BP 96/51
--- NOTE | 2019-02-21 17:05 | NUR ---
PT WAS DISCHARGED TO SNF. THE TELE MONITOR ET [facility] TO TELE UNIT TO [employer] OPERATOR THIS PT. THE PT WAS TAKEN TO W/C GILA BEND VIA SERVICE ACTIVITY ASSISTANT ET DAUGHTER. PT HAD DISCHARGE PACKET ET ALL HER BELONGS WITH HER SHE LEFT THE UNIT. ALL HOURLY ROUNDS HAD BEEN COMPLETED CHARTED. PT LET TELE UNIT AT 1701.
--- NOTE | 2019-02-22 09:32 | EEG ---
[address] [address] EEG STUDY REPORT Name: CIERRA GERONIMO Room: [address] IN M.R.#: [id number] Admission: 02/18/19 Attend Phys: Linda Fair MD Discharge: 02/21/19 Date of : 45 Report #: [id number] THIS REPORT FOR: //name// CC: Linda Romero DATE OF SERVICE: 02/18/2019 This patient is being evaluated for weakness. EEG was done by placing the electrode by standard 10/20 system of electrode placement. Both referential and sequential montages were used for recording. Background activity in this patient's EEG is about 7-8 Hz and 30 microvolt. This patient became drowsy that is associated with bilateral slowing. Photic stimulation is unremarkable. Throughout the record, no active epileptiform activity was noticed. IMPRESSION: This patient's EEG is intermixed with theta range slowing on both sides. That is a nonspecific abnormality, which can occur with drowsiness, effect of psychotropic medication, dementia, etc. Clinical correlation is recommended. <ELECTRONICALLY SIGNED> By: Neal Newsome MD 02/22/19 0932 1634 1659Partheodora Newsome MD /nt
--- NOTE | 2019-03-08 14:47 | CON ---
[address] [address] CONSULTATION Name: GRAZYNACIERRA J Room: [address] IN .R.#: [id number] Admission: 02/18/19 Attend Phys: Linda Fair MD Discharge: 02/21/19 Date of : 45 Report #: [id number] THIS REPORT FOR: //name// CC: Linda Romero DICTATED BY: America Gaxiola [facility] DATE OF SERVICE: 02/19/2019 The patient does not have a PCP. Please note at the time of this dictation, the patient was seen and physically examined by myself. REASON FOR CONSULTATION: Nausea, vomiting, hematemesis and anemia. HISTORY OF PRESENT ILLNESS: This is a 73-year-old female who presented to the Emergency Room who is not a very good historian, who has some element of dementia noted. She was feeling very dizzy yesterday and has been reporting nausea and vomiting, albeit has some dark red blood on and off for the last 4 weeks. She does have significant issues with reflux and indigestion, but is not taking anything for that at this time. The patient denies any abdominal pain or melena. She states that she did have an EGD and colonoscopy 5 years ago somewhere near [place], but is unsure where that is at. ALLERGIES: No known drug allergies. MEDICATIONS: From home is B12, omeprazole 20 mg and trazodone. PAST MEDICAL HISTORY: History of arthritis and fibromyalgia and anemia, which she has seen Dr. Winters for workup back in November having a bone marrow, was inconclusive. PAST SURGICAL HISTORY: Total knee replacement and a nephrectomy. FAMILY HISTORY: Noncontributory. SOCIAL HISTORY: Denies any alcohol, tobacco or illegal drug use. REVIEW OF SYSTEMS: Twelve-point review of systems is essentially negative except what is mentioned in the HPI. PHYSICAL EXAMINATION: VITAL SIGNS: Temperature 37.2, pulse 63, respirations 18, blood pressure 109/94. [place] [address] CONSULTATION Name: GRAZYNACIERRA Shalonda Room: [address]#: [id number] Admission: 02/18/19 Attend Phys: Linda Fair MD Discharge: 02/21/19 Date of : 45 Report #: [id number] HEART: Regular rate and rhythm. LUNGS: Clear. ABDOMEN: Soft, positive bowel sounds in all 4 quadrants with no masses or tenderness noted. LABORATORY DATA: Hemoglobin on admission was 6.1. She has gotten 2 units, she is up to 7.1, white count is 2.9 and platelets are 184. GFR is 40. PT is 11.1, INR is 1.1, BUN is 27. CT of the head was negative. Chest x-ray negative. IMPRESSION: 1. Szomi-tb-zcenoqy anemia. 2. Nausea. 3. Hematemesis. 4. Nonsteroidal anti-inflammatory drug use frequently. 5. Gastroesophageal reflux disease. PLAN: 1. EGD today with Dr. Will. 2. Further recommendations to be made once the procedure has been performed. Thank you for allowing us to participate in this patient's care. Please do not hesitate to call with any questions in regard to this consult. <ELECTRONICALLY SIGNED> By: Ada Will MD 03/08/19 1447 1143 [id number] Will MD /nt
== END 2019-02-21 17:01 | DRG 380 ==
LOC: M.ERS 21:26 → M.TBA-ER 02-18 00:07 → M.2W 02-18 00:07
PROVIDERS: Emergency Medicine; Internal Medicine; ADMIT Internal Medicine
PROC: 30233N1 Transfusion of Nonautologous Red Blood Cells into Peripheral Vein, Percutaneous Approach (ICD-10-PCS; principal; 2019-02-19)
PROC: 0DB58ZX Excision of Esophagus, Via Natural or Artificial Opening Endoscopic, Diagnostic (ICD-10-PCS; 2019-02-19)
DX: K22.11 Ulcer of esophagus with bleeding (principal); G93.41 Metabolic encephalopathy; N17.9 Acute kidney failure, unspecified; K92.0 Hematemesis; Z96.651 Presence of right artificial knee joint; K21.9 Gastro-esophageal reflux disease without esophagitis; D53.9 Nutritional anemia, unspecified; K21.0 Gastro-esophageal reflux disease with esophagitis; K44.9 Diaphragmatic hernia without obstruction or gangrene; M19.90 Unspecified osteoarthritis, unspecified site; Z79.1 Long term (current) use of non-steroidal anti-inflammatories (NSAID); Z90.5 Acquired absence of kidney; Z79.899 Other long term (current) drug therapy